=== PATIENT | female | born 1950 | race Caucasian/White ===

== ENCOUNTER 2017-08-18 10:59 | Inpatient (IN) | payer MEDICARE ==
[~2017-08-18] VITALS: Ht 165.1 cm; Wt 109.0 kg
[2017-08-18] MEDS ORDERED: HYDR10TA11 PO (11:43)
[2017-08-18] MEDS ORDERED: INSU100V8 SQ (11:43)
[2017-08-18] MEDS ORDERED: LISI5TAB7 PO (11:43)
[2017-08-18] MEDS ORDERED: FURO-92 PO (11:43)
[2017-08-18] MEDS ORDERED: INSU100C SQ-INSULIN (11:43)
[2017-08-18] MEDS ORDERED: POTA25TA4 PO (11:43)
[2017-08-18] MEDS ORDERED: METF500T27 PO (11:43)
[2017-08-18] MEDS ORDERED: KRIL1CAP5 PO (11:43)
[2017-08-18] MEDS ORDERED: ALBUTEROL/IPRATROPIUM 2.5MG/0.5MG, 3 ML ONE (11:52)
[2017-08-18] MEDS ORDERED: ALBUTEROL/IPRATROPIUM 2.5MG/0.5MG, 3 ML NPPB ONE (12:00)
[2017-08-18] MEDS ORDERED: SODIUM CHLORIDE FLUSH 10ML SYR IVF ONE (12:00)
[2017-08-18] MEDS ORDERED: HYDR-3237 PO (12:03)
[2017-08-18 12:09] LABS: BASOPHILS # (AUTO) 0.02 x10^3/uL (0-0.1); BASOPHILS % (AUTO) 0 % (0-1); EOSINOPHILS # (AUTO) 0.09 x10^3/uL (0-0.4); EOSINOPHILS % (AUTO) 1 % (1-7); LYMPHOCYTES # (AUTO) 2.41 x10^3/uL (1-3.4); LYMPHOCYTES % (AUTO) 31 % (22-44); MD NO; MEAN CORPUSCULAR HEMOGLOBIN 27.9 pg (27.0-34.8); MEAN CORPUSCULAR HGB CONC 32.3 g/dL (32.4-35.8); MEAN CORPUSCULAR VOLUME 86.5 fL (80-100); MONOCYTES % (AUTO) 10 % (2-9); NEUTROPHILS # (AUTO) 4.53 x10^3/uL (1.8-6.8); NEUTROPHILS % (AUTO) 58 % (42-75); PLATELET COUNT 170 x10^3/uL (130-400); RED BLOOD COUNT 4.15 x10^6/uL (3.82-5.3); RED CELL DISTRIBUTION WIDTH 14.9 % (9.6-15.2)
[2017-08-18 12:16] LABS: INTERNATIONAL NORMALIZED RATIO 0.97 (0.93-1.1); PROTHROMBIN TIME 10.1 Seconds (9.6-11.5)
[2017-08-18 12:20] LABS: ALANINE AMINOTRANSFERASE 27 U/L (12-78); ALBUMIN 3.1 g/dL (3.4-5.0); ANION GAP 10 mmol/L (5-15); CALCIUM 9.1 mg/dL (8.5-10.1); CHLORIDE 100 mmol/L (98-107); CREATININE 1.18 mg/dL (0.55-1.02)
[2017-08-18 12:25] LABS: ALKALINE PHOSPHATASE 119 U/L (45-117); BILIRUBIN,TOTAL 0.3 mg/dL (0.2-1.0); TOTAL PROTEIN 7.1 g/dL (6.4-8.2)
[2017-08-18 12:29] LABS: TROPONIN I 0.123 ng/mL (0.000-0.045)
[2017-08-18] MEDS ORDERED: ASPIRIN 81 MG TABLET CHEW ONE (12:33)
[2017-08-18] MEDS ORDERED: FUROSEMIDE 20 MG/2 ML ONE (12:43)
[2017-08-18] MEDS ORDERED: FUROSEMIDE 40 MG/4 ML IVPush ONE (13:00)
[2017-08-18] MEDS ORDERED: ASPIRIN 81 MG TABLET CHEW PO ONE (13:00)
[2017-08-18] MEDS ORDERED: SODIUM CHLORIDE FLUSH 10ML SYR IVF PRN (13:30)
[2017-08-18 13:44] LABS: MICROSCOPIC INDICATED
[2017-08-18 13:45] LABS: CULTURE INDICATED? YES
[2017-08-18] MEDS ORDERED: ENALAPRILAT 1.25 MG/ML, 2ML IVPush PRN (14:00)
[2017-08-18] MEDS ORDERED: ACETAMINOPHEN 325 MG TABLET PO PRN (14:00)
[2017-08-18] MEDS ORDERED: POLYETHYLENE GLYCOL 17 GM PACKET PO PRN (14:00)
[2017-08-18] MEDS ORDERED: FUROSEMIDE 40 MG/4 ML IV SCH (14:00)
[2017-08-18] MEDS ORDERED: DEXTROSE 4 GM TAB.CHEW PO PRN (14:00)
[2017-08-18] MEDS ORDERED: BISACODYL 10 MG SUPP PR PRN (14:00)
[2017-08-18] MEDS ORDERED: HYDROcodone/APAP 5/325 TABLET PO PRN (14:00)
[2017-08-18] MEDS ORDERED: DOCUSATE 100 MG CAPSULE PO PRN (14:00)
[2017-08-18] MEDS ORDERED: ONDANSETRON 2MG/ML, 2ML IVPush PRN (14:00)
[2017-08-18] MEDS ORDERED: DEXTROSE 50%, 50ML SYRINGE IVPush PRN (14:00)
[2017-08-18] MEDS ORDERED: GLUCAGON 1 MG IM PRN (14:00)
[2017-08-18] MEDS ORDERED: HYDROcodone/APAP 5/325 TABLET ONE (14:19)
[2017-08-18 15:16] LABS: HEMOGLOBIN A1C 8.8 % (4.2-6.3)
[2017-08-18] MEDS ORDERED: HEPARIN 5,000 UNITS/ML, 1ML ONE (15:32)
[2017-08-18] MEDS: HEPARIN 5,000 UNITS/ML, 1ML SQ SCH ×2 (15:36→22:11)
[2017-08-18] MEDS: INSULIN LISPRO 100 UNITS/ML, PEN SQ-INSULIN SCH ×2 (17:24→22:11)
[2017-08-18] MEDS ORDERED: INSULIN GLARGINE 100 UNITS/ML, PEN SQ-INSULIN SCH (21:30)
[2017-08-18] MEDS ORDERED: GABA-827 PO (21:33)
[2017-08-18] MEDS ORDERED: ROPINIROLE 1MG TABLET PO SCH (22:00)
[2017-08-18] MEDS ORDERED: GABAPENTIN 400 MG CAPSULE PO SCH (22:00)
[2017-08-18] MEDS: metFORMIN XR 500 MG TAB.ER.24H PO SCH (22:10)
[2017-08-18] MEDS ORDERED: ATOR10TA9 PO (22:33)
[2017-08-18] MEDS ORDERED: BACL-19 PO (22:33)
[2017-08-18] MEDS ORDERED: AMIT100T PO (22:33)
[2017-08-18] MEDS ORDERED: ESCI10TA10 PO (22:33)
[2017-08-18] MEDS ORDERED: SENN1TAB7 PO (22:33)
[2017-08-18] MEDS ORDERED: ROPI1TAB PO (22:33)
[2017-08-18] MEDS: GABAPENTIN 300 MG CAPSULE PO SCH (23:40)
[2017-08-18] MEDS: ACYCLOVIR 800 MG TABLET PO SCH (23:40)
[2017-08-18] MEDS: ROPINIROLE 0.5MG TABLET PO SCH (23:40)
[2017-08-18 23:55] LABS: TROPONIN I 0.156 ng/mL (0.000-0.045)
[2017-08-19 00:50] VITALS: BP 119/75
[2017-08-19] MEDS: HYDROcodone/APAP 5/325 TABLET PO PRN ×3 (00:52→22:32)
[2017-08-19 05:36] LABS: BASOPHILS # (AUTO) 0.03 x10^3/uL (0-0.1); BASOPHILS % (AUTO) 0 % (0-1); EOSINOPHILS # (AUTO) 0.21 x10^3/uL (0-0.4); EOSINOPHILS % (AUTO) 3 % (1-7); LYMPHOCYTES # (AUTO) 3.06 x10^3/uL (1-3.4); LYMPHOCYTES % (AUTO) 38 % (22-44); MD NO; MEAN CORPUSCULAR HEMOGLOBIN 27.9 pg (27.0-34.8); MEAN CORPUSCULAR HGB CONC 32.3 g/dL (32.4-35.8); MEAN CORPUSCULAR VOLUME 86.5 fL (80-100); MEAN PLATELET VOLUME 7.4 fL (7.4-10.4); MONOCYTES # (AUTO) 0.75 x10^3/uL (0.2-0.8); MONOCYTES % (AUTO) 9 % (2-9); NEUTROPHILS # (AUTO) 3.95 x10^3/uL (1.8-6.8); NEUTROPHILS % (AUTO) 50 % (42-75); PLATELET COUNT 178 x10^3/uL (130-400); RED BLOOD COUNT 4.06 x10^6/uL (3.82-5.3); RED CELL DISTRIBUTION WIDTH 15.1 % (9.6-15.2)
[2017-08-19 05:46] LABS: ALANINE AMINOTRANSFERASE 27 U/L (12-78); ALBUMIN 3.2 g/dL (3.4-5.0); ANION GAP 6 mmol/L (5-15); CALCIUM 8.6 mg/dL (8.5-10.1); CHLORIDE 101 mmol/L (98-107); CREATININE 0.86 mg/dL (0.55-1.02)
[2017-08-19 05:53] LABS: ALKALINE PHOSPHATASE 95 U/L (45-117); BILIRUBIN,TOTAL 0.4 mg/dL (0.2-1.0); CHOL/HDL RATIO 3.3; CHOLESTEROL, TOTAL 126 mg/dL (140-239); HDL CHOL % 30 % (28-40); HDL CHOLESTEROL (DIRECT) 38 mg/dL (40-60); LDL CHOLESTEROL,CALCULATED 60 mg/dL (54-169); LDL/HDL RATIO 1.6 (0.5-3.0); TOTAL PROTEIN 7.4 g/dL (6.4-8.2); TRIGLYCERIDES 139 mg/dL (50-200); VLDL CHOLESTEROL 28 mg/dL (0-25)
[2017-08-19] MEDS: ASPIRIN 325 MG TABLET EC PO SCH (06:09)
[2017-08-19] MEDS: HEPARIN 5,000 UNITS/ML, 1ML SQ SCH ×3 (06:09→21:39)
[2017-08-19] MEDS: INSULIN LISPRO 100 UNITS/ML, PEN SQ-INSULIN SCH ×4 (07:00→21:39)
[2017-08-19 08:00] VITALS: BP 150/83
[2017-08-19] MEDS: ACYCLOVIR 800 MG TABLET PO SCH ×2 (08:49→20:45)
[2017-08-19] MEDS: GABAPENTIN 300 MG CAPSULE PO SCH ×3 (08:49→20:45)
[2017-08-19] MEDS: SENNA/DOCUSATE TABLET PO SCH ×2 (08:50→20:45)
[2017-08-19] MEDS: ROPINIROLE 0.5MG TABLET PO SCH ×2 (08:50→20:45)
[2017-08-19] MEDS: FUROSEMIDE 40 MG TABLET PO SCH (08:50)
[2017-08-19] MEDS: LISINOPRIL 5 MG TABLET PO SCH (08:50)
[2017-08-19] MEDS: K-LYTE 25 MEQ TABLET.EFF PO SCH (08:50)
[2017-08-19] MEDS: OMEGA-3/FISH OIL CAPSULE PO SCH (08:51)
[2017-08-19] MEDS: metFORMIN XR 500 MG TAB.ER.24H PO SCH (08:51)
[2017-08-19] MEDS ORDERED: TEMPLATE NON-FORMULARY MED. (Metformin Hcl** (Metformin Hcl Er**) 1,000 MG) PO SCH (09:00)
[2017-08-19] MEDS ORDERED: ROPINIROLE 0.5MG TABLET PO SCH (09:00)
[2017-08-19] MEDS ORDERED: GABAPENTIN 300 MG CAPSULE PO SCH (09:00)
[2017-08-19] MEDS ORDERED: GABAPENTIN 400 MG CAPSULE PO SCH (09:00)
[2017-08-19] MEDS ORDERED: PNEUMOCOCCAL 23 VACCINE IM-VACC ONE (09:00)
[2017-08-19] MEDS ORDERED: TEMPLATE NON-FORMULARY MED. (Escitalopram Oxalate** (Lexapro**) 10 MG) HOMEMEDPO SCH (09:00)
[2017-08-19 09:18] LABS: TROPONIN I 0.132 ng/mL (0.000-0.045)
[2017-08-19] MEDS ORDERED: SODIUM CHLORIDE 0.9%, 500ML IVBOLUS ONE (09:30)
[2017-08-19] MEDS ORDERED: OMNIPAQUE 350 MG/ML, 100ML BOTTLE ONE (10:04)
[2017-08-19] MEDS: CITALOPRAM 20 MG TABLET PO SCH (10:29)
[2017-08-19] MEDS: CEFTRIAXONE PMX 1GM/50ML 50 ML IV SCH (10:50)
[2017-08-19] MEDS ORDERED: REGADENOSON 0.4 MG/5 ML SYRINGE ONE (12:42)
[2017-08-19 13:50] VITALS: BP 136/80
[2017-08-19 18:51] VITALS: BP 143/69
[2017-08-19] MEDS ORDERED: AMITRIPTYLINE 25 MG TABLET ONE (20:32)
[2017-08-19] MEDS: AMITRIPTYLINE 50 MG TABLET PO SCH (20:46)
[2017-08-19] MEDS: INSULIN GLARGINE 100 UNITS/ML, PEN SQ-INSULIN SCH (21:38)
[2017-08-20 00:35] VITALS: BP 116/74
[2017-08-20 05:11] LABS: BASOPHILS # (AUTO) 0.02 x10^3/uL (0-0.1); BASOPHILS % (AUTO) 0 % (0-1); EOSINOPHILS # (AUTO) 0.21 x10^3/uL (0-0.4); EOSINOPHILS % (AUTO) 2 % (1-7); LYMPHOCYTES # (AUTO) 2.29 x10^3/uL (1-3.4); LYMPHOCYTES % (AUTO) 27 % (22-44); MD NO; MEAN CORPUSCULAR HEMOGLOBIN 28.4 pg (27.0-34.8); MEAN CORPUSCULAR HGB CONC 32.8 g/dL (32.4-35.8); MEAN CORPUSCULAR VOLUME 86.6 fL (80-100); MEAN PLATELET VOLUME 7.5 fL (7.4-10.4); MONOCYTES # (AUTO) 0.66 x10^3/uL (0.2-0.8); MONOCYTES % (AUTO) 8 % (2-9); NEUTROPHILS # (AUTO) 5.36 x10^3/uL (1.8-6.8); NEUTROPHILS % (AUTO) 63 % (42-75); PLATELET COUNT 185 x10^3/uL (130-400); RED BLOOD COUNT 3.94 x10^6/uL (3.82-5.3); RED CELL DISTRIBUTION WIDTH 15.1 % (9.6-15.2)
[2017-08-20 05:15] LABS: ANION GAP 5 mmol/L (5-15); CALCIUM 8.3 mg/dL (8.5-10.1); CHLORIDE 101 mmol/L (98-107); CREATININE 0.74 mg/dL (0.55-1.02)
[2017-08-20] MEDS ORDERED: BACLOFEN 10 MG TABLET PO PRN (06:00)
[2017-08-20] MEDS ORDERED: POTASSIUM CHLORIDE 20 MEQ TAB.ER.PRT PO ONE ×2 (06:00→14:00)
[2017-08-20 06:16] LABS: HEMOGLOBIN A1C 8.7 % (4.2-6.3)
[2017-08-20] MEDS: ASPIRIN 325 MG TABLET EC PO SCH (06:16)
[2017-08-20] MEDS: HEPARIN 5,000 UNITS/ML, 1ML SQ SCH ×3 (06:16→22:12)
[2017-08-20] MEDS: HYDROcodone/APAP 5/325 TABLET PO PRN ×3 (06:22→16:56)
[2017-08-20 08:24] VITALS: BP 106/68
[2017-08-20] MEDS ORDERED: SODIUM CHLORIDE 0.9% 1,000 ML IV SCH (08:30)
[2017-08-20] MEDS: SENNA/DOCUSATE TABLET PO SCH ×2 (08:35→22:11)
[2017-08-20] MEDS: ROPINIROLE 0.5MG TABLET PO SCH ×2 (08:41→22:12)
[2017-08-20] MEDS: K-LYTE 25 MEQ TABLET.EFF PO SCH (08:41)
[2017-08-20] MEDS: GABAPENTIN 300 MG CAPSULE PO SCH ×3 (08:41→22:12)
[2017-08-20] MEDS: CITALOPRAM 20 MG TABLET PO SCH (08:42)
[2017-08-20] MEDS: FUROSEMIDE 40 MG TABLET PO SCH (08:42)
[2017-08-20] MEDS: ACYCLOVIR 800 MG TABLET PO SCH ×2 (08:42→22:12)
[2017-08-20] MEDS: OMEGA-3/FISH OIL CAPSULE PO SCH (08:42)
[2017-08-20] MEDS: LISINOPRIL 5 MG TABLET PO SCH (08:42)
[2017-08-20] MEDS: INSULIN LISPRO 100 UNITS/ML, PEN SQ-INSULIN SCH ×4 (08:44→22:33)
[2017-08-20] MEDS: CEFTRIAXONE PMX 1GM/50ML 50 ML IV SCH (10:38)
[2017-08-20 13:00] VITALS: BP 113/53
[2017-08-20 16:50] VITALS: BP 127/82
[2017-08-20] MEDS: METOPROLOL TARTRATE 25 MG TABLET PO SCH (16:56)
[2017-08-20 19:19] VITALS: BP 112/56
[2017-08-20] MEDS: AMITRIPTYLINE 50 MG TABLET PO SCH (22:11)
[2017-08-20] MEDS: ATORVASTATIN 10 MG TABLET PO SCH (22:12)
[2017-08-20] MEDS: INSULIN GLARGINE 100 UNITS/ML, PEN SQ-INSULIN SCH (22:33)
[2017-08-21] MEDS: HYDROcodone/APAP 5/325 TABLET PO PRN ×4 (00:07→21:34)
[2017-08-21 01:11] VITALS: BP 113/72
[2017-08-21 05:24] LABS: BASOPHILS # (AUTO) 0.03 x10^3/uL (0-0.1); BASOPHILS % (AUTO) 0 % (0-1); EOSINOPHILS # (AUTO) 0.27 x10^3/uL (0-0.4); EOSINOPHILS % (AUTO) 3 % (1-7); LYMPHOCYTES # (AUTO) 3.01 x10^3/uL (1-3.4); LYMPHOCYTES % (AUTO) 33 % (22-44); MD NO; MEAN CORPUSCULAR HEMOGLOBIN 28.2 pg (27.0-34.8); MEAN CORPUSCULAR HGB CONC 32.6 g/dL (32.4-35.8); MEAN CORPUSCULAR VOLUME 86.6 fL (80-100); MEAN PLATELET VOLUME 7.3 fL (7.4-10.4); MONOCYTES # (AUTO) 0.75 x10^3/uL (0.2-0.8); MONOCYTES % (AUTO) 8 % (2-9); NEUTROPHILS # (AUTO) 4.99 x10^3/uL (1.8-6.8); NEUTROPHILS % (AUTO) 55 % (42-75); PLATELET COUNT 193 x10^3/uL (130-400); RED BLOOD COUNT 3.92 x10^6/uL (3.82-5.3); RED CELL DISTRIBUTION WIDTH 14.6 % (9.6-15.2)
[2017-08-21 05:32] LABS: ANION GAP 6 mmol/L (5-15); CALCIUM 8.6 mg/dL (8.5-10.1); CHLORIDE 104 mmol/L (98-107); CREATININE 0.73 mg/dL (0.55-1.02)
[2017-08-21 06:18] VITALS: BP 118/74
[2017-08-21] MEDS: ASPIRIN 325 MG TABLET EC PO SCH (06:20)
[2017-08-21] MEDS: HEPARIN 5,000 UNITS/ML, 1ML SQ SCH ×3 (06:20→21:34)
[2017-08-21] MEDS: METOPROLOL TARTRATE 25 MG TABLET PO SCH ×2 (06:20→16:25)
[2017-08-21] MEDS: INSULIN LISPRO 100 UNITS/ML, PEN SQ-INSULIN SCH ×4 (07:00→20:30)
[2017-08-21 08:03] VITALS: BP 111/71
[2017-08-21] MEDS: OMEGA-3/FISH OIL CAPSULE PO SCH (09:00)
[2017-08-21] MEDS: SENNA/DOCUSATE TABLET PO SCH ×2 (09:30→20:22)
[2017-08-21] MEDS: FUROSEMIDE 40 MG TABLET PO SCH (09:30)
[2017-08-21] MEDS: GABAPENTIN 300 MG CAPSULE PO SCH ×3 (09:30→20:22)
[2017-08-21] MEDS: ROPINIROLE 0.5MG TABLET PO SCH ×2 (09:30→20:22)
[2017-08-21] MEDS: CITALOPRAM 20 MG TABLET PO SCH (09:30)
[2017-08-21] MEDS: ACYCLOVIR 800 MG TABLET PO SCH ×2 (09:30→20:22)
[2017-08-21] MEDS: LISINOPRIL 5 MG TABLET PO SCH (09:30)
[2017-08-21] MEDS: NITROFURANTOIN 50 MG CAPSULE PO SCH ×3 (10:27→20:21)
[2017-08-21 14:02] VITALS: BP 143/78
[2017-08-21] MEDS ORDERED: FUROSEMIDE 20 MG/2 ML IV ONE (18:30)
[2017-08-21] MEDS ORDERED: FUROSEMIDE 20 MG TABLET PO ONE (19:00)
[2017-08-21 19:29] VITALS: BP 113/73
[2017-08-21] MEDS: AMITRIPTYLINE 50 MG TABLET PO SCH (20:21)
[2017-08-21] MEDS: ATORVASTATIN 10 MG TABLET PO SCH (20:22)
[2017-08-21] MEDS: INSULIN GLARGINE 100 UNITS/ML, PEN SQ-INSULIN SCH (20:30)
[2017-08-22 01:56] VITALS: BP 101/65
[2017-08-22 06:05] VITALS: BP 122/69
[2017-08-22] MEDS: ASPIRIN 325 MG TABLET EC PO SCH (06:06)
[2017-08-22] MEDS: NITROFURANTOIN 50 MG CAPSULE PO SCH ×3 (06:06→15:53)
[2017-08-22] MEDS: HEPARIN 5,000 UNITS/ML, 1ML SQ SCH ×2 (06:07→13:39)
[2017-08-22] MEDS: METOPROLOL TARTRATE 25 MG TABLET PO SCH (06:07)
[2017-08-22 06:35] VITALS: BP 109/70
[2017-08-22] MEDS: INSULIN LISPRO 100 UNITS/ML, PEN SQ-INSULIN SCH ×3 (07:00→15:53)
[2017-08-22] MEDS ORDERED: METO25TA35 PO (07:22)
[2017-08-22] MEDS ORDERED: NITR50CA11 PO (07:22)
[2017-08-22] MEDS: ACYCLOVIR 800 MG TABLET PO SCH (08:15)
[2017-08-22] MEDS: SENNA/DOCUSATE TABLET PO SCH (08:16)
[2017-08-22] MEDS: LISINOPRIL 5 MG TABLET PO SCH (08:16)
[2017-08-22] MEDS: GABAPENTIN 300 MG CAPSULE PO SCH ×2 (08:16→15:53)
[2017-08-22] MEDS: FUROSEMIDE 40 MG TABLET PO SCH (08:16)
[2017-08-22] MEDS: ROPINIROLE 0.5MG TABLET PO SCH (08:16)
[2017-08-22] MEDS: CITALOPRAM 20 MG TABLET PO SCH (08:16)
[2017-08-22] MEDS: OMEGA-3/FISH OIL CAPSULE PO SCH (08:16)
[2017-08-22] MEDS: HYDROcodone/APAP 5/325 TABLET PO PRN (11:30)
[2017-08-22 13:00] VITALS: BP 106/69
== END 2017-08-22 15:45 | disposition home or self-care (01) | DRG 291 ==
LOC: ED 12:27 → EDIP 13:25 → 5SO 20:56
PROVIDERS: ADMIT Hospitalist; ATTEND Hospitalist
DX: I11.0 Hypertensive heart disease with heart failure (principal); J96.01 Acute respiratory failure with hypoxia; E44.0 Moderate protein-calorie malnutrition; Z68.41 Body mass index [BMI] 40.0-44.9, adult; I50.43 Acute on chronic combined systolic (congestive) and diastolic (congestive) heart failure; K74.60 Unspecified cirrhosis of liver; N30.90 Cystitis, unspecified without hematuria; E11.65 Type 2 diabetes mellitus with hyperglycemia; Z71.3 Dietary counseling and surveillance; K76.0 Fatty (change of) liver, not elsewhere classified; E66.01 Morbid (severe) obesity due to excess calories; E78.5 Hyperlipidemia, unspecified; G25.81 Restless legs syndrome; J00 Acute nasopharyngitis [common cold]; K59.09 Other constipation; M79.7 Fibromyalgia; Z80.1 Family history of malignant neoplasm of trachea, bronchus and lung; Z82.49 Family history of ischemic heart disease and other diseases of the circulatory system; Z82.5 Family history of asthma and other chronic lower respiratory diseases; Z87.01 Personal history of pneumonia (recurrent); Z87.891 Personal history of nicotine dependence; Z98.84 Bariatric surgery status; Z88.8 Allergy status to other drugs, medicaments and biological substances; Z23 Encounter for immunization
CPT/HCPCS: 36415; 71045; 71275; 76700; 78452; 80048; 80053; 80061; 81001; 82040; 82962; 83036; 83690; 83735; 83880; 84100; 84443; 84484; 85025; 85610; 85730; 87077; 87086; 87186; 90732; 93005; 93017; 93306; 94640; 96372; 96374; J0696; J1644; J1940; J2785; J7620; Q9967; A9502; C9898; J1815; J7030; J7040